=== PATIENT | male | born 1990 | race Two or more races ===

== ENCOUNTER 2018-12-04 18:32 | Emergency (ER) | payer SELFPAY ==
[~2018-12-04] VITALS: Ht 172.7 cm; Wt 101.0 kg
[2018-12-04 18:38] VITALS: BP 134/96
== END 2018-12-04 22:30 | disposition left against medical advice (07) ==
LOC: EMS 18:35
DX: R21 Rash and other nonspecific skin eruption (principal); F12.90 Cannabis use, unspecified, uncomplicated; Z53.21 Procedure and treatment not carried out due to patient leaving prior to being seen by health care provider